=== PATIENT | female | born 1960 | race Caucasian/White ===

== ENCOUNTER → 2016-07-31 | Outpatient (CLI) | payer OTHER ==
[~2016-07-31] MED LIST: CALCCHW23 PO; LACTCAP7 PO; OMEGCAP19 PO
[2016-07-31 10:31] LABS: AUTOMATED NEUTROPHIL # 1.7 TH/MM3 (1.8-7.7); BASOPHIL % 0.7 % (0.0-2.0); EOSINOPHIL # 0.1 TH/MM3 (0-0.4); EOSINOPHIL % 2.6 % (0.0-4.0); HEMO FLAGS DIFF FINAL; LYMPHOCYTE # 1.6 TH/MM3 (1.0-4.8); MEAN CELL VOLUME 91.6 FL (80.0-100.0); MEAN CORPUSCULAR HEMOGLOBIN 31.1 PG (27.0-34.0); MEAN CORPUSCULAR HGB CONC 33.9 % (32.0-36.0); MONO % 5.9 % (0.0-8.0); NEUT % 47.8 % (16.0-70.0); PLATELET COUNT 233 TH/MM3 (150-450); RED BLOOD COUNT 4.37 MIL/MM3 (4.00-5.30); RED CELL DISTRIBUTION WIDTH 12.5 % (11.6-17.2); WHITE BLOOD COUNT 3.6 TH/MM3 (4.0-11.0)
[2016-07-31 10:48] LABS: WESTERGREN SEDIMENTATION RATE 7 mm/hr (0-30)
[2016-07-31 11:03] LABS: ALKALINE PHOSPHATASE 78 U/L (45-117); ALT (GPT) 22 U/L (10-53); ANION GAP 7 MEQ/L (5-15); AST (GOT) 21 U/L (15-37); BICARBONATE 27.7 MEQ/L (21.0-32.0); BLOOD UREA NITROGEN 16 MG/DL (7-18); CHLORIDE 108 MEQ/L (98-107); FREE T4 0.82 NG/DL (0.76-1.46); GLOMERULAR FILTRATION RATE 65 ML/MIN (>89); GLUCOSE,FASTING 93 MG/DL (74-99); HDL CHOLESTEROL 64.8 MG/DL (40.0-60.0); LDL CHOLESTEROL 173 MG/DL (0-99); POTASSIUM 4.6 MEQ/L (3.5-5.1); SODIUM (NA) 143 MEQ/L (136-145); TOTAL BILIRUBIN ADULT 0.7 MG/DL (0.2-1.0)
[2016-07-31 17:01] LABS: RAPID PLASMA REAGIN SCREEN NON-REACTIVE (NON-REACTVE)
== END ==
LOC: PLAB 08:00
PROVIDERS: ATTEND Family Medicine
DX: Z00.00 Encounter for general adult medical examination without abnormal findings (principal); R41.3 Other amnesia
CPT/HCPCS: 80053; 80061; 84439; 84443; 85025; 85652; 86592

== ENCOUNTER → 2016-08-16 | Outpatient (CLI) | payer OTHER ==
[2016-08-17 12:21] LABS: CRYPTOCOCCUS ANTIGEN Negative (Negative)
[2016-08-19 23:55] LABS: LYME DISEASE 18KD IGG BAND NON-REACTIVE (()); LYME DISEASE 23 IGG BAND NON-REACTIVE (()); LYME DISEASE 23KD IGM BAND REACTIVE (()); LYME DISEASE 28KD IGG BAND NON-REACTIVE (()); LYME DISEASE 30KD IGG BAND NON-REACTIVE (()); LYME DISEASE 39 KD IGG BAND NON-REACTIVE (()); LYME DISEASE 39KD IGM BAND NON-REACTIVE (()); LYME DISEASE 41KD IGG BAND NON-REACTIVE (()); LYME DISEASE 41KD IGM BAND REACTIVE (()); LYME DISEASE 45KD IGG BAND NON-REACTIVE (()); LYME DISEASE 58KD IGG BAND NON-REACTIVE (()); LYME DISEASE 66KD IGG BAND NON-REACTIVE (()); LYME DISEASE 93KD IGG BAND NON-REACTIVE (()); LYME DISEASE IGM WB POSITIVE (())
== END ==
LOC: PLAB 12:18
PROVIDERS: ATTEND Specialist
DX: A69.20 Lyme disease, unspecified (principal); E53.8 Deficiency of other specified B group vitamins; G61.9 Inflammatory polyneuropathy, unspecified; M31.6 Other giant cell arteritis
CPT/HCPCS: 82607; 86038; 86403; 86617

== ENCOUNTER → 2016-09-18 | Outpatient (CLI) | payer OTHER ==
[2016-09-18 09:32] LABS: APTT (PATIENT) 25.2 SEC (24.3-30.1); PROTHROMBIN TIME - PATIENT 10.5 SEC (9.8-11.6)
[2016-09-18 10:10] LABS: AUTOMATED NEUTROPHIL # 3.3 TH/MM3 (1.8-7.7); BASOPHIL % 0.5 % (0.0-2.0); EOSINOPHIL # 0.1 TH/MM3 (0-0.4); EOSINOPHIL % 1.2 % (0.0-4.0); HEMATOCRIT 35.6 % (35.0-46.0); HEMO FLAGS DIFF FINAL; LYMPH % 30.9 % (9.0-44.0); LYMPHOCYTE # 1.6 TH/MM3 (1.0-4.8); MEAN CELL VOLUME 90.6 FL (80.0-100.0); MEAN CORPUSCULAR HEMOGLOBIN 31.9 PG (27.0-34.0); MEAN CORPUSCULAR HGB CONC 35.2 % (32.0-36.0); MONO % 5.4 % (0.0-8.0); PLATELET COUNT 220 TH/MM3 (150-450); RED BLOOD COUNT 3.93 MIL/MM3 (4.00-5.30); WHITE BLOOD COUNT 5.3 TH/MM3 (4.0-11.0)
[2016-09-18 10:26] LABS: TOTAL PROTEIN SPE 7.4 GM/DL (6.0-7.6)
[2016-09-19 09:21] LABS: ALBUMIN SPE 5.06 GM/DL (3.50-5.00); ALPHA 1 GLOBULIN 0.2 GM/DL (0.11-0.29); ALPHA 2 GLOBULIN 0.77 GM/DL (0.22-1.00); BETA GLOBULINS (SPE) 0.77 GM/DL (0.53-1.03)
[2016-09-20 03:51] LABS: THROMBIN TIME FOR LA ND sec (13-19)
[2016-09-20 15:52] LABS: HU (NEURONAL NUCLEAR) WESTBLOT ND (NEGATIVE); NEURONAL NUCLEAR(Ri) AB SCREEN NEGATIVE (NEGATIVE); PURKINJE CELL (YO) AB NEGATIVE (NEGATIVE); PURKINJE CELL(YO)IGG AB TITER ND titer (<1:40); YO WESTBLOT ND (NEGATIVE)
[2016-09-20 23:53] LABS: THYROGLOB ABS LESS THAN 1 IU/mL (< OR = 1)
[2016-09-21 17:52] LABS: THYROGLOBULN 34.1 ng/mL (())
[2016-09-21 23:52] LABS: LYME DISEASE 18KD IGG BAND NON-REACTIVE (()); LYME DISEASE 23 IGG BAND NON-REACTIVE (()); LYME DISEASE 23KD IGM BAND REACTIVE (()); LYME DISEASE 28KD IGG BAND NON-REACTIVE (()); LYME DISEASE 30KD IGG BAND NON-REACTIVE (()); LYME DISEASE 39 KD IGG BAND NON-REACTIVE (()); LYME DISEASE 39KD IGM BAND NON-REACTIVE (()); LYME DISEASE 41KD IGG BAND NON-REACTIVE (()); LYME DISEASE 41KD IGM BAND NON-REACTIVE (()); LYME DISEASE 45KD IGG BAND NON-REACTIVE (()); LYME DISEASE 58KD IGG BAND NON-REACTIVE (()); LYME DISEASE 66KD IGG BAND NON-REACTIVE (()); LYME DISEASE 93KD IGG BAND NON-REACTIVE (()); LYME DISEASE IGM WB NEGATIVE (())
== END ==
LOC: PLAB 08:23
PROVIDERS: ATTEND Specialist
DX: R94.6 Abnormal results of thyroid function studies (principal); A69.20 Lyme disease, unspecified; R78.9 Finding of unspecified substance, not normally found in blood; D68.2 Hereditary deficiency of other clotting factors; E03.9 Hypothyroidism, unspecified; G61.9 Inflammatory polyneuropathy, unspecified; G13.0 Paraneoplastic neuromyopathy and neuropathy; R76.0 Raised antibody titer
CPT/HCPCS: 84165; 84432; 85025; 85610; 85613; 85730; 86147; 86255; 86376; 86617; 86800; 87801

== ENCOUNTER 2016-09-20 06:41 | Day surgery (SDC) | payer OTHER ==
[~2016-09-20] VITALS: Ht 167.6 cm; Wt 57.5 kg
[2016-09-20 06:49] VITALS: BP 154/101; PULSE 65; RESP 20; TEMP 98; O2SAT 97
[2016-09-20] MEDS ORDERED: SODIUM BICARBONATE 8.4% INJ 50 ML ONE (08:05)
[2016-09-20 08:20] VITALS: BP 156/85; PULSE 65; RESP 16; TEMP 98.1; O2SAT 98
--- NOTE | 2016-09-20 08:27 | PD.RAD ---
Post Procedure Progress Note Pre Procedure Diagnosis: (1) Memory loss Post Procedure Diagnosis: (1) Memory loss Procedure Date: Sep 20, 2016 Supervising Radiologist: Juan Carlos Vasquez Anesthesia: Local Plan of Activity Patient to Unit: [facility] Patient Condition: Good Additional Comments: LP completed without difficulty. 16cc of clear csf obtained. Samples sent to the lab. See PACS Report for procedural detail/treatment Juan Carlos Vasquez MD Sep 20, 2016 08:27
--- NOTE | 2016-09-20 08:55 | RADRPT ---
EXAM DATE/TIME: 09/20/2016 07:44 [place] COMPARISON: No previous studies available for comparison. INDICATIONS : Patient with a history of memory loss MEDICAL HISTORY : Basil cell carcinoma Headaches SURGICAL HISTORY : Breast augmentation ENCOUNTER: Initial ACUITY: > 1 year PAIN SCORE: 0/10 LUMBAR PUNCTURE TIME: 0812 hours FLUORO TIME: 0.9 minutes ACCESS LEVEL: L4-5 FLUID: 16 cc of clear CSF was collected and sent to the laboratory for analysis. PROCEDURE : 1. Fluoroscopic guided lumbar puncture. The risks, benefits and alternatives to the procedure were explained and verbal and written consent w as obtained. The site was prepped in sterile fashion. Full sterile technique was used, including ca p, mask, sterile gloves and gown and a large sterile sheet. Hand hygiene and 2% chlorhexidine and/or betadine/alcohol prep was utilized per protocol for cutaneous antisepsis. The skin and subcutaneous tissues were infiltrated with local anesthetic solution. With fluoroscopic guidance the lumbar thecal sac was punctured at the L4/L5 level. 16 cc of clear CS F was collected and sent to the laboratory for analysis. The patient tolerated the procedure well and there were no complications. CONCLUSION: Uncomplicated fluoroscopically guided lumbar puncture. Juan Carlos Vasquez MD on September 20, 2016 at 8:53 Board Certified Radiologist. This report was verified electronically.
[2016-09-20 09:30] LABS: GROSS BLOOD TUBE #1 0 (0); SUPERNATE COLOR TUBE #1 CLEAR (CLEAR); VOLUME TUBE # 1 3.9 ML; WBC TUBE #1 2 /MM3 (0-10)
[2016-09-20 09:31] LABS: CSF LYMPHOCYTES 96 %; CSF MONOCYTES 4 %; CSF NEUTROPHILS 0 %; GROSS BLOOD TUBE #2 0 (0); GROSS BLOOD TUBE #3 0 (0); GROSS BLOOD TUBE #4 0 (0); SUPERNATE COLOR TUBE #2 CLEAR (CLEAR); SUPERNATE COLOR TUBE #3 CLEAR (CLEAR); SUPERNATE COLOR TUBE #4 CLEAR (CLEAR); VOLUME TUBE # 2 3.6 ML; VOLUME TUBE # 3 4.6 ML; VOLUME TUBE # 4 4.2 ML
[2016-09-20 09:32] LABS: CSF LYMPHOCYTES 0 %; CSF NEUTROPHILS 0 %; GROSS BLOOD TUBE #4 0 (0); SUPERNATE COLOR TUBE #4 CLEAR (CLEAR); VOLUME TUBE # 4 4.2 ML; WBC TUBE #4 0 /MM3 (0-10)
[2016-09-20 10:00] VITALS: BP 148/76; PULSE 68; RESP 16; O2SAT 96
[2016-09-21 15:43] LABS: LYME IGG IMMUNOBLOT CSF None Detected bands (None Detected); LYME IGM IMMUNOBLOT CSF None Detected bands (None Detected)
[2016-09-21 16:40] LABS: ALBUMIN SERUM 4520 mg/dL (3200 - 4800); IGG CSF 2.1 mg/dL (<=8.1); IGG SERUM 638 mg/dL (767 - 1590); IGG/ALBUMIN CSF 0.07 (<=0.21); IGG/ALBUMIN SERUM 0.14 (<=0.40); OLIGOCLONAL BANDING CSF 0 bands (()); OLIGOCLONAL BANDING INTERPRET 0 bands (<4); OLIGOCLONAL BANDING SERUM 0 bands (()); SYNTHESIS RATE CSF 0.07 mg/24 h (<=12)
[2016-09-22 19:52] LABS: VDRL CSF NON-REACTIVE (())
[2016-09-22 23:51] LABS: B. BURGDORFERI DNA PCR CSF NOT DETECTED (())
[2016-09-23 08:30] LABS: CSF CRYPTOCOCCUS AG CONF ND (NOT DETECTD)
== END 2016-09-20 10:05 | disposition home or self-care (01) ==
LOC: HROP 06:41 → HRIP 06:42 → HROP 10:05
PROVIDERS: ATTEND Specialist
DX: R41.3 Other amnesia (principal)
CPT/HCPCS: 62270; 77003; 82040; 82042; 82784; 82945; 83873; 83916; 84157; 86403; 86592; 86618; 87015; 87070; 87102; 87116; 87205; 87206; 87801; 89051

== ENCOUNTER → 2017-11-30 | Outpatient (CLI) | payer OTHER ==
[2017-11-30 13:53] LABS: AUTOMATED NEUTROPHIL # 2.3 TH/MM3 (1.8-7.7); BASOPHIL % 0.5 % (0.0-2.0); EOSINOPHIL # 0.1 TH/MM3 (0-0.4); HEMATOCRIT 39.6 % (35.0-46.0); HEMOGLOBIN 13.4 GM/DL (11.6-15.3); LYMPHOCYTE # 2.1 TH/MM3 (1.0-4.8); MEAN CELL VOLUME 89.8 FL (80.0-100.0); MEAN CORPUSCULAR HEMOGLOBIN 30.3 PG (27.0-34.0); MEAN CORPUSCULAR HGB CONC 33.8 % (32.0-36.0); MONOCYTE # 0.3 TH/MM3 (0-0.9); NEUT % 47.5 % (16.0-70.0); PLATELET COUNT 302 TH/MM3 (150-450); RED BLOOD COUNT 4.41 MIL/MM3 (4.00-5.30); RED CELL DISTRIBUTION WIDTH 13.1 % (11.6-17.2); WHITE BLOOD COUNT 4.8 TH/MM3 (4.0-11.0)
[2017-11-30 14:18] LABS: ALBUMIN 4.1 GM/DL (3.4-5.0); AST (GOT) 25 U/L (15-37); BICARBONATE 29.9 MEQ/L (21.0-32.0); BLOOD UREA NITROGEN 8 MG/DL (7-18); CALCIUM 9.6 MG/DL (8.5-10.1); CHLORIDE 105 MEQ/L (98-107); CREATININE 0.87 MG/DL (0.50-1.00); GLOMERULAR FILTRATION RATE 68 ML/MIN (>89); GLUCOSE,FASTING 87 MG/DL (74-99); SODIUM (NA) 141 MEQ/L (136-145)
[2017-11-30 14:19] LABS: ALT (GPT) 33 U/L (10-53); CHOLESTEROL 262 MG/DL (120-200)
[2017-11-30 14:28] LABS: ALKALINE PHOSPHATASE 141 U/L (45-117); CHOLESTEROL/ HDL RATIO 5.01 RATIO; HDL CHOLESTEROL 52.2 MG/DL (40.0-60.0); LDL CHOLESTEROL 162 MG/DL (0-99); TOTAL BILIRUBIN ADULT 0.5 MG/DL (0.2-1.0); TOTAL PROTEIN 7.5 GM/DL (6.4-8.2); TRIGLYCERIDES 238 MG/DL (42-150)
== END ==
LOC: PLAB 11:28
PROVIDERS: ATTEND Family Medicine
DX: I10 Essential (primary) hypertension (principal); R41.3 Other amnesia
CPT/HCPCS: 36415; 80053; 80061; 84443; 85025

== ENCOUNTER 2018-05-27 22:15 | Observation (INO) ==
--- NOTE | 2018-05-27 22:52 | ED ---
HPI General Chief complaint: Seizure Stated complaint: Seizures Time Seen by Provider: 05/27/18 22:19 Source: family Mode of arrival: EMS Limitations: altered mental status (the patient is unable to provide her history due to dementia. Her is providing her history.) History of Present Illness HPI narrative: The patient is aa 57 year old female who presents to the [facility] emergency department with a history of seizure activity witnessed by her prior to arrival. The patient was reportedly sitting and watching television when her walked out of the room. He heard a grown/loud sound from the other room including a side and then walked into the room finding her with seizure activity. The patient fell onto the tile floor. The patient was frothing at the mouth. The patient had a generalized tonic-clonic seizure activity. The patient had a decreased level of consciousness for approximately 5 minutes. The patient then was noted by ambulance services to be in a postictal state. The patient has no prior history of seizure disorder. The patient does however have a history of early onset Alzheimer's diagnosed 2 years ago. The patient at baseline is not very communicative according to her . She is not able to state her name. He reports that he has a caregiver that comes to the house 10 hours a day. He reports that she has become aggressive with caregivers and 2 weeks ago was started on CBD oil which seems to be helping to relax her. This is the only new medication. He reports that she did appear well earlier in the day. He reports that the only thing that was different recently was on Sunday he found her in a cabinet attempting to take a handful of ibuprofen. He reports that she would not be able to communicate to him exactly why she wanted to ibuprofen, however he did assist her with taking 3 tablets in case she had some pain. She has not had any known fevers, nausea, vomiting, or diarrhea. She has not had any change in her urination. She has not had any focal weakness noted. The patient's incidentally also reports that the patient did sleep longer than usual on this past Sunday. Related Data Home Medications Medication Instructions Recorded Confirmed Cbd Oil See Label Instructions .ROUTE 05/27/18 .COMPLEX donepezil [Aricept] 5 mg PO HS 05/27/18 05/27/18 Allergies Allergy/AdvReac Type Severity Reaction Status Date / Time No Known Allergies Allergy Uncoded 05/14/12 10:27 Review of Systems ROS Unobtainable ROS Unobtainable: unobtainable due to mental status PMFSH Medical History Medical History Early onset Alzheimer's dementia (Acute) Surgical History Surgical History H/O tubal ligation (Acute) Family History Family History Sister Epilepsy Mother Alzheimer's dementia Father Cerebral aneurysm Social History Social History Substance History: No History of Abuse Smoking Status: Former smoker Tobacco Type: Cigarettes Smoking End Date: Quit smoking 2 years ago. How Often Do You Have a Drink Containing Alcohol: Never Recent Travel in [place] within the Last 8 Weeks: No Recent Out of Country Travel within the Last 8 Weeks: No Immunization History Tetanus Immunization: >5 Years Exam Const General: cooperative, no acute distress and well developed Nutritional Appearance: well nourished Orientation: alert and awake Limitations: other limitations (When asked orientation questioning the patient does not answer.) HENWY Head: normocephalic and atraumatic Nose: no nasal discharge and no epistaxis Throat: other (The patient refuses to open her mouth for examination in her oropharynx.) Eyes Sclera: normal sclerae Pupils: PERRL Neck Neck: no meningeal signs, trachea midline and no JVD Resp Effort & Inspection: no use of accessory muscles Auscultation: clear to auscultation bilaterally Cardio Rate: regular rate Rhythm: regular rhythm Heart Sounds: no gallops, no murmurs and no rubs GI Inspection: non-distended Palpation: soft, no hepatosplenomegaly, no guarding, not rigid and nontender Auscultation: normal bowel sounds Back/Spine/Pelvis Back: no CVA tenderness Skin General: dry skin (warm) Neuro General: alert, awake and other (She is uncooperative with formal neurologic testing although she has no evidence of facial asymmetry. She has intact sensation over her dermatomes and spontaneously moves all extremities with 5/5 strength.) Speech: speech normal Motor: no movement abnormalities noted Extrem General: normal to inspection (2+ pulses in all 4 extremities.), no calf tenderness, no clubbing, no cyanosis and no edema Psych Mood: congruent mood Affect: normal affect Judgment: limited Course Initial Documented Vital Signs Pulse Rate 79 05/27/18 22:23 Respiratory Rate 15 05/27/18 22:23 Blood Pressure 143/77 H 05/27/18 22:23 Pulse Oximetry 95 05/27/18 22:23 Last Documented Vital Signs Temperature 97.7 F 05/28/18 03:00 Pulse Rate 69 05/28/18 03:10 Respiratory Rate 20 05/28/18 03:00 Blood Pressure 125/63 05/28/18 03:00 Pulse Oximetry 94 L 05/28/18 03:00 Medical Decision Making MDM Narrative Medical decision making narrative: During the course of the patient's emergency department visit, the patient's history, examination, and differential diagnosis were reviewed with the patient's family. The patient was placed on a senior licensing manager with oximetry and frequent blood pressure monitoring. The patient had IV access obtained and blood work sent for analysis. A diagnostic evaluation was started regarding new onset seizure activity. The patient was initially provided normal saline IV fluids. The patient's diagnostic studies are remarkable for an essentially normal CBC, PT PTT within normal limits, chemistry is remarkable for a creatinine of 1.07 which is slightly increased compared to prior levels and should be improved with IV fluid hydration, glucose 107, lactic acid 1.5, AST 38, alk phos 131, CPK 546, MB percent 0.9, troponin I less than 0.02, lipase within normal limits. A chest x-ray showed a right middle lobe infiltrate. This could be related to aspiration. Blood cultures x2 were added to the patient's evaluation. The patient was started on broad-spectrum antibiotic coverage to include coverage for aspiration. The patient became agitated and CT for, therefore for sedation the patient was provided Ativan 1 mg IV. The patient's CT scan of the brain showed no acute abnormality. The patient's case was discussed with Dr. Chan, the patient's neurologist who did request that the patient be started on Keppra 500 mg p.o. twice daily. The patient's case including history, pertinent physical examination findings, and laboratory studies were discussed with Dr. Beckman. It was agreed that the patient would be admitted to the hospitalist service. The patient's results were discussed with the patient's family, including the plan of care. I explained that further testing and/ or monitoring is indicated based on the patient's history, examination, and/ or laboratory findings. Therefore, I recommended admission for additional evaluation. The patient's family expressed understanding and was agreeable with this plan. The patient was admitted to the hospital in guarded condition and sent to a bed under the care of the [facility] service. Medical Screen Exam Complete: Yes Emergency Medical Condition: Yes Differential Diagnosis Differential Diagnosis: Intracranial mass, versus intracranial hemorrhage, versus electrolyte derangements, new onset seizure disorder Medical Records Medical records reviewed: Yes I reviewed the patient's medical records. Lab Data Lab results reviewed: Yes I reviewed the patient's lab results. Result diagrams: 05/27/18 22:45 05/27/18 22:45 Lab Results 05/27/18 05/27/18 05/27/18 Range/Units 22:45 22:45 22:45 WBC 7.6 (4.0-11.0) th/mm3 RBC 4.44 (4.00-5.30) mil/mm3 Hgb 13.6 (11.6-15.3) gm/dL Hct 39.9 (35.0-46.0) % MCV 89.9 (80.0-100.0) fL MCH 30.7 (27.0-34.0) pg MCHC 34.1 (32.0-36.0) % RDW 13.0 (11.6-17.2) % Plt Count 245 (150-450) th/mm3 MPV 8.4 (7.0-11.0) fL Neut % (Auto) 56.1 (16.0-70.0) % Lymph % (Auto) 33.4 (9.0-44.0) % [place] % (Auto) 8.4 H (0.0-8.0) % Eos % (Auto) 1.7 (0.0-4.0) % Baso % (Auto) 0.4 (0.0-2.0) % Neut # (Auto) 4.3 (1.8-7.7) th/mm3 Lymph # (Auto) 2.5 (1.0-4.8) th/mm3 [place] # (Auto) 0.6 (0.0-0.9) th/mm3 Eos # (Auto) 0.1 (0.0-0.4) th/mm3 Baso # (Auto) 0.0 (0.0-0.2) th/mm3 WBC Differential . Differential Comment Auto diff final PT 10.3 (9.8-11.6) sec INR 1.0 Ratio APTT 26.8 (23.4-31.7) sec Sodium 136 (136-145) meq/L Potassium 4.0 (3.5-5.1) meq/L Chloride 100 (98-107) meq/L Carbon Dioxide 27.2 (21.0-32.0) meq/L Anion Gap 9 (5-15) meq/L BUN 14 (7-18) mg/dL Creatinine 1.07 H (0.50-1.00) mg/dL Estimated GFR 53 L (>89) mL/min Random Glucose 107 H (74-106) mg/dL Lactic Acid (0.4-2.0) mmol/L Calcium 9.0 (8.5-10.1) mg/dL Magnesium 2.3 (1.5-2.5) mg/dL Total Bilirubin 0.9 (0.2-1.0) mg/dL AST 38 H (15-37) U/L ALT 36 (10-53) U/L Alkaline Phosphatase 131 H (45-117) U/L Total Creatine Kinase 546 H (26-192) U/L CK-MB (CK-2) 4.8 H (0.5-3.6) ng/mL CK-MB (CK-2) % 0.9 (0.0-4.0) % Troponin I Less than 0.02 L (0.02-0.05) ng/mL Total Protein 7.6 (6.4-8.2) g/dL Albumin 3.9 (3.4-5.0) g/dL Lipase 150 (73-393) U/L 05/28/18 05/28/18 Range/Units 00:00 04:59 WBC (4.0-11.0) th/mm3 RBC (4.00-5.30) mil/mm3 Hgb (11.6-15.3) gm/dL Hct (35.0-46.0) % MCV (80.0-100.0) fL MCH (27.0-34.0) pg MCHC (32.0-36.0) % RDW (11.6-17.2) % Plt Count (150-450) th/mm3 MPV (7.0-11.0) fL Neut % (Auto) (16.0-70.0) % Lymph % (Auto) (9.0-44.0) % [place] % (Auto) (0.0-8.0) % Eos % (Auto) (0.0-4.0) % Baso % (Auto) (0.0-2.0) % Neut # (Auto) (1.8-7.7) th/mm3 Lymph # (Auto) (1.0-4.8) th/mm3 [place] # (Auto) (0.0-0.9) th/mm3 Eos # (Auto) (0.0-0.4) th/mm3 Baso # (Auto) (0.0-0.2) th/mm3 WBC Differential Differential Comment PT (9.8-11.6) sec INR Ratio APTT (23.4-31.7) sec Sodium (136-145) meq/L Potassium (3.5-5.1) meq/L Chloride (98-107) meq/L Carbon Dioxide (21.0-32.0) meq/L Anion Gap (5-15) meq/L BUN (7-18) mg/dL Creatinine (0.50-1.00) mg/dL Estimated GFR (>89) mL/min Random Glucose (74-106) mg/dL Lactic Acid 1.5 (0.4-2.0) mmol/L Calcium (8.5-10.1) mg/dL Magnesium (1.5-2.5) mg/dL Total Bilirubin (0.2-1.0) mg/dL AST (15-37) U/L ALT (10-53) U/L Alkaline Phosphatase (45-117) U/L Total Creatine Kinase 658 H (26-192) U/L CK-MB (CK-2) 10.4 H (0.5-3.6) ng/mL CK-MB (CK-2) % 1.6 (0.0-4.0) % Troponin I 0.05 (0.02-0.05) ng/mL Total Protein (6.4-8.2) g/dL Albumin (3.4-5.0) g/dL Lipase (73-393) U/L Imaging Data Radiologist's impression: Chest X-Ray 05/27/18 22:34 CONCLUSION: Middle lobe infiltrate Head CT 05/28/18 00:00 CONCLUSION: Negative CT Head non contrast. ECG Data Attestation: I personally reviewed and interpreted this ECG as follows: Interpretation: The patient had a EKG done on arrival that shows a sinus rhythm heart rate of 76, QRS duration is 94 ms, QTC [address] segment elevation. T waves are inverted in V1. Discharge Plan Discharge Disposition Patient Disposition: 30 Still Patient Discharge Details Diagnosis: New onset seizure, Right middle lobe pulmonary infiltrate Physicians Team ED Provider: Toma Brown Primary Care Provider: Blanca Hernández Attending Provider: Nissa Monreal Other Providers: Doug Ordaz Status ED Status: Left Department Discharge Information Discharge Date/Time: 05/28/18 04:36
--- NOTE | 2018-05-27 22:55 | XR ---
EXAM DATE: 05/27/2018 10:50 PM EST AGE/SEX: 57 years / Female INDICATIONS: Congestion CLINICAL DATA: This is the patient's initial encounter. Patient reports that signs and symptoms have been present for 1 day and indicates a pain score of Nonresponsive. MEDICAL/SURGICAL HISTORY: Non-responsive. Non-responsive. COMPARISON: No prior exams available for comparison. FINDINGS: There is slight middle lobe parenchymal opacity which may be early infiltrate. No evidence of effusio n. Cardiomediastinal contours are satisfactory. Thoracic skeleton is grossly intact. CONCLUSION: Middle lobe infiltrate Electronically signed by: Max Suero MD 05/27/2018 10:54 PM EST
[2018-05-27 23:01] LABS: Baso % (Auto) 0.4 % (0.0-2.0); Eos # (Auto) 0.1 th/mm3 (0.0-0.4); Eos % (Auto) 1.7 % (0.0-4.0); Hematocrit 39.9 % (35.0-46.0); Hemoglobin 13.6 gm/dL (11.6-15.3); Lymph # (Auto) 2.5 th/mm3 (1.0-4.8); Lymph % (Auto) 33.4 % (9.0-44.0); Mean Corpuscular HGB Conc 34.1 % (32.0-36.0); Mean Corpuscular Hemoglobin 30.7 pg (27.0-34.0); Mean Corpuscular Volume 89.9 fL (80.0-100.0); Mean Platelet Volume 8.4 fL (7.0-11.0); Mono # (Auto) 0.6 th/mm3 (0.0-0.9); Mono % (Auto) 8.4 % (0.0-8.0); Neut # (Auto) 4.3 th/mm3 (1.8-7.7); Neut % (Auto) 56.1 % (16.0-70.0); Platelet Count 245 th/mm3 (150-450); Red Blood Count 4.44 mil/mm3 (4.00-5.30); White Blood Count 7.6 th/mm3 (4.0-11.0)
[2018-05-27 23:11] LABS: Activated Partial Thrombo Time 26.8 sec (23.4-31.7); Prothrombin Time 10.3 sec (9.8-11.6)
[2018-05-27 23:19] LABS: Alanine Aminotransferase 36 U/L (10-53)
[2018-05-27 23:23] LABS: Alkaline Phosphatase 131 U/L (45-117); Creatine Kinase 546 U/L (26-192); Total Protein 7.6 g/dL (6.4-8.2)
[2018-05-27 23:25] LABS: Albumin 3.9 g/dL (3.4-5.0); Anion Gap 9 meq/L (5-15); Aspartate Aminotransferase 38 U/L (15-37); Blood Urea Nitrogen 14 mg/dL (7-18); Carbon Dioxide 27.2 meq/L (21.0-32.0); Chloride 100 meq/L (98-107); Glomerular Filtration Rate 53 mL/min (>89); Glucose,Random 107 mg/dL (74-106); Lipase 150 U/L (73-393); Magnesium 2.3 mg/dL (1.5-2.5); Sodium 136 meq/L (136-145)
[2018-05-27 23:35] LABS: CKMB Percent 0.9 % (0.0-4.0); Creatine Kinase MB 4.8 ng/mL (0.5-3.6)
[2018-05-27] MEDS ORDERED: Azithromycin Inj 500 MG in Sodium Chlor 0.9% Inj 250 ML IV.SIG ONE (23:36)
[2018-05-27] MEDS ORDERED: Sod Chloride 0.9% Inj 1,000 ML IV.SIG ONE (23:37)
--- NOTE | 2018-05-28 00:53 | CT ---
EXAM DATE: 05/28/2018 12:47 AM EST AGE/SEX: 57 years / Female INDICATIONS: Seizure. CLINICAL DATA: This is the patient's initial encounter. Patient reports that signs and symptoms have been present for 1 day and indicates a pain score of 0/10. MEDICAL/SURGICAL HISTORY: Dementia. Alzheimer's disease. Tubal ligation. RADIATION DOSE: 34.07 CTDI (mGy) COMPARISON: POI, MR BRAIN W AND W/O CONTRAST, 08/03/2016. . TECHNIQUE: CT of the head without contrast. Using automated exposure control and adjustment of the mA and/or kV according to patient size, radiation dose was kept as low as reasonably achievable to ob tain optimal diagnostic quality images. DICOM format image data is available electronically for revi ew and comparison. FINDINGS: Cerebrum: The ventricles are normal for age. No evidence of midline shift, mass lesion, hemorrhage or acute infarction. No extraaxial fluid collections are seen. Posterior Fossa: The cerebellum and brainstem are intact. The 4th ventricle is midline. The cerebe llopontine angle is unremarkable. Extracranial: The visualized portion of the orbits is intact. Skull: The calvaria is intact. No evidence of skull fracture. CONCLUSION: Negative CT Head non contrast. Electronically signed by: Max Suero MD 05/28/2018 12:52 AM EST
[2018-05-28] MEDS ORDERED: Sod Chloride 0.9% Inj 1,000 ML IV.CONT SCH (01:30)
[2018-05-28] MEDS ORDERED: Bisacodyl 10 MG Supp RECTAL PRN (01:39)
[2018-05-28] MEDS: Ampicillin/Sulbactam Inj 3 GM in Sodium Chloride 0.9% Inj 100 ML IV.SIG SCH ×4 (02:52→20:33)
--- NOTE | 2018-05-28 03:34 | P.HPIM ---
History of Present Illness Primary Care Physician: Blanca Hernández MD History of Present Illness: 57-year-old female with history of early onset Alzheimer's dementia diagnosed 2 years ago who presents to the emergency department with seizure activity witnessed by her at home prior to arrival. Patient had been watching television, with reporting a loud sound, groaning, with patient having fallen to the floor, with generalized tonic-clonic seizure activity, gurgling, frothing at the mouth. Patient reported to have decreased level of consciousness for 5 minutes, reportedly in postictal state as per cyber defense incident responder. Patient poorly communicative at baseline, however reportedly able to tell ER staff her name and birthdate. She subsequently received Ativan prior to CT scan and is now sleeping soundly. notes no changes in medications recently. Patient has been verbally aggressive with home care, and was started on CBD oil 2 weeks ago which appears to have helped calm her down. Patient was noted to be sleeping during the day on Sunday, apparently found trying to take a handful of ibuprofen on Sunday, however was only administered 3 tablets at that time. No significant changes over the past few days. Review of Systems All other systems reviewed negative except as stated in HPI PMFSH - History History Provided By: Product Marketing Director / EMT - Medical History Medical History: Medical History (Last Reviewed 05/28/18 @ 03:25 by Aashish Beckman MD) Early onset Alzheimer's dementia - Surgical History Surgical History: Surgical History (Last Reviewed 05/27/18 @ 22:48 by Toma Brown MD) H/O tubal ligation - Family History Family History: Family History (Last Updated 05/28/18 @ 03:32 by Aashish Beckman MD) Sister Epilepsy Mother Alzheimer's dementia Father Cerebral aneurysm - Social History I have reviewed the patient's Social History: Yes - Tobacco History Smoking Status: Former smoker Tobacco Type: Cigarettes Smoking End Date: Quit smoking 2 years ago. - Alcohol History How Often Do You Have a Drink Containing Alcohol: Never - Substance Use History Substance History: No History of Abuse - Travel History Recent Travel in the [facility] Within the Last 8 Weeks: No Recent Travel Out of the Country Within the Last 8 Weeks: No - Immunization History Tetanus Immunization: >5 Years Medications and Allergies Active Medications: Active Medications Al Hydroxide/Mg Hydroxide (Milk Of Magnesia Liq) 30 ml PO Q12H PRN PRN Reason: Mild Constipation Bisacodyl (Dulcolax Supp) 10 mg RECTAL DAILY PRN PRN Reason: SEVERE CONSITIPATION Sodium Chloride (Ns Inj) 1,000 mls @ 75 mls/hr IV.CONT .[id number] [facility] Last Admin: 05/28/18 01:40 Dose: 75 mls/hr Ampicillin Sodium/Sulbactam (Sodium 3 gm/ Sodium Chloride) 100 mls @ 200 mls/ hr IV.SIG Q6H [facility] Last Admin: 05/28/18 02:52 Dose: 200 mls/hr Lactulose (Lactulose Liq) 30 ml PO DAILY PRN PRN Reason: SEVERE CONSITIPATION Levetiracetam (Keppra) 500 mg PO BID [facility] Lorazepam (Ativan Inj) 0.5 mg IV.PUSH Q2H PRN PRN Reason: AGITATION Sennosides (Senokot) 17.2 mg PO Q12H PRN PRN Reason: Moderate Constipation Sodium Chloride (Ns Flush) 2 ml IV.FLUSH PRN PRN PRN Reason: FLUSH AFTER USING IV ACCESS Sodium Chloride (Ns Flush) 2 ml IV.FLUSH BID [facility] Allergies Allergy/AdvReac Type Severity Reaction Status Date / Time No Known Allergies Allergy Uncoded 05/14/12 10:27 Home Medications Medication Instructions Recorded Confirmed Type Cbd Oil See Label Instructions .ROUTE 05/27/18 History .COMPLEX donepezil [Aricept] 5 mg PO HS 05/27/18 05/27/18 History Exam Vital signs: Vital Signs 05/27/18 22:23 05/27/18 23:31 05/27/18 23:32 Pulse Rate 79 81 Respiratory Rate 15 Blood Pressure 143/77 H Pulse Oximetry 95 94 L 05/28/18 01:35 05/28/18 01:37 05/28/18 02:09 Pulse Rate 69 Respiratory Rate 15 Blood Pressure 126/61 Pulse Oximetry 98 97 97 Intake & Output 05/27/18 05/27/18 05/28/18 06:59 18:59 06:59 Intake Total 1100 / 1100 Balance 1100 / 1100 Weight 70.307 kg Intake: IV 1100 / 1100 NS Inj 1,000 ML @ Wide Open IV. 1000 / 1000 SIG BOLUS ONE Rx#:[id number] Rocephin Inj 1,000 MG In NS Inj 100 / 100 100 ML @ 200 mls/hr IV.SIG ONCE ONE Rx#:[id number] Narrative: GENERAL: Patient sleeping, minimally arousable to tactile stimulation. Appears comfortable. Recently received Ativan. SKIN: Warm and dry. HEAD: Atraumatic. Normocephalic. ENT: No nasal bleeding or discharge. Mucous membranes pink and moist. NECK: Trachea midline. No JVD. CARDIOVASCULAR: Regular rate and rhythm. RESPIRATORY: No accessory muscle use. Clear to auscultation. Breath sounds equal bilaterally. No crackles. No rhonchi. GASTROINTESTINAL: Abdomen soft, non-tender, nondistended. Hepatic and splenic margins not palpable. MUSCULOSKELETAL: Extremities without clubbing, cyanosis, or edema. No obvious deformities. NEUROLOGICAL: Sleeping. No obvious cranial nerve deficits. Exam limited by patient sleeping with recent Ativan. Results - Labs CBC & Chem 7: 05/27/18 22:45 05/27/18 22:45 Labs: Short CBC 05/27/18 Range/Units 22:45 WBC 7.6 (4.0-11.0) th/mm3 Hgb 13.6 (11.6-15.3) gm/dL Hct 39.9 (35.0-46.0) % Plt Count 245 (150-450) th/mm3 BMP 05/27/18 22:45 Sodium 136 Potassium 4.0 Chloride 100 Carbon Dioxide 27.2 BUN 14 Creatinine 1.07 H Calcium 9.0 Cardiac Enzymes 05/27/18 Range/Units 22:45 Total Creatine Kinase 546 H (26-192) U/L CK-MB (CK-2) 4.8 H (0.5-3.6) ng/mL Troponin I Less than 0.02 L (0.02-0.05) ng/mL Liver Function 05/27/18 Range/Units 22:45 Total Bilirubin 0.9 (0.2-1.0) mg/dL AST 38 H (15-37) U/L ALT 36 (10-53) U/L Alkaline Phosphatase 131 H (45-117) U/L Albumin 3.9 (3.4-5.0) g/dL - Imaging Impressions Chest X-Ray 05/27/18 22:34 CONCLUSION: Middle lobe infiltrate Head CT 05/28/18 00:00 CONCLUSION: Negative CT Head non contrast. Caprini VTE Risk Assessment Caprini VTE Risk Assessment: No/Low Risk (score <= 1) Caprini Risk Assessment Model: Point Value = 1 Point Value = 2 Point Value = 3 Point Value = 5 Age 41-60 Minor surgery BMI > 25 kg/m2 Swollen legs Varicose veins or History of unexplained or recurrent spontaneous Oral contraceptives or hormone replacement Sepsis (< 1 month) Serious lung disease, including pneumonia (< 1 month) Abnormal pulmonary function Acute myocardial infarction Congestive heart failure (< 1 month) History of inflammatory bowel disease Medical patient at bed rest Age 61-74 Arthroscopic surgery Major open surgery (> 45 min) Laparoscopic surgery (> 45 min) Malignancy Confined to bed (> 72 hours) Immobilizing plaster cast Central venous access Age >= 75 History of VTE Family history of VTE Factor V Leiden Prothrombin [id number] Lupus anticoagulant Anticardiolipin antibodies Elevated serum homocysteine Heparin-induced thrombocytopenia Other congenital or acquired thrombophilia Stroke (< 1 month) Elective arthroplasty Hip, pelvis, or leg fracture Acute spinal cord injury (< 1 month) Prophylaxis Regimen: Total Risk Factor Score Risk Level Prophylaxis Regimen 0-1 Low Early ambulation 2 Moderate Order ONE of the following: *Sequential Compression Device (SCD) *Heparin 5000 units SQ BID 3-4 Higher Order ONE of the following medications: *Heparin 5000 units SQ TID *Enoxaparin/Lovenox 40 mg SQ daily (WT < 150 kg, CrCl > 30 mL/min) *Enoxaparin/Lovenox 30 mg SQ daily (WT < 150 kg, CrCl > 10-29 mL/min) *Enoxaparin/Lovenox 30 mg SQ BID (WT < 150 kg, CrCl > 30 mL/min) AND/OR *Sequential Compression Device (SCD) 5 or more Highest Order ONE of the following medications: *Heparin 5000 units SQ TID (Preferred with Epidurals) *Enoxaparin/Lovenox 40 mg SQ daily (WT < 150 kg, CrCl > 30 mL/min) *Enoxaparin/Lovenox 30 mg SQ daily (WT < 150 kg, CrCl > 10-29 mL/min) *Enoxaparin/Lovenox 30 mg SQ BID (WT < 150 kg, CrCl > 30 mL/min) AND *Sequential Compression Device (SCD) Assessment and Plan - Plan //Suspected new-onset seizure -CT with no acute findings -CK 546 on admission. Will be trended. Could be related to patient's history of new onset Alzheimer's EEG, MRI ordered and pending. Start on Keppra 500 mg p.o. twice daily -Neuro checks, seizure precautions. -Troponin negative. T waves inverted in V1, nonspecific. Troponins and EKGs will be trended. -Ativan as needed for agitation, imaging. Neurology consulted. Follow-up neurology recommendations. Dr. Chan is her neurologist. //Aspiration pneumonia. //Suspected right middle lobe pneumonia -Right middle lobe infiltrate personally visualized on chest x-ray. Likely aspiration due to suspected seizure -Oximetry 92% on room air reportedly. Oxygen as needed. We will start on Unasyn to cover gram negatives, anaerobes, aspiration pneumonia. //History of early onset Alzheimer's dementia On donepezil at home. Will hold this medication until patient seen by neurology. Appreciate assistance. //CODE STATUS. This will need to be discussed with family on subsequent encounter. Defaulted to full code. Discussed Condition With: nurse, ED physician, at bedside. Discharge Planning: Patient in observation. If stable, cleared by neurology, and respiratory status stable, may be able to go home this afternoon.
[2018-05-28 05:52] LABS: Troponin I 0.05 ng/mL (0.02-0.05)
[2018-05-28 06:04] LABS: CKMB Percent 1.6 % (0.0-4.0); Creatine Kinase MB 10.4 ng/mL (0.5-3.6)
--- NOTE | 2018-05-28 08:08 | ECG ---
Date Performed: 05/27/2018 Time Performed: 22:36:09 PTAGE: 57 years EKG: Marked baseline artifact Sinus rhythm NORMAL ECG Would repeat EKG. NO PREVIOUS TRACING DOCTOR: Issac Babin Interpretating Date/Time 05/28/2018 08:06:20
--- NOTE | 2018-05-28 08:25 | P.PNIM ---
Subjective Interval history: f/u seizures and likely pneumonia History difficult to obtain due to patient's mental status but does not appear to have a headache. Still lethargic but easily arousable with verbal stimulation. When asked about pain, she was silent. Per RN, patient went to the bathroom this morning, moved her bowels, was able to verbalized her name and birthday. No overnight events, no episode of seizures, no note of coughing , desaturation, focal weakness, fever or chills. Physical Exam Vital signs: Vital Signs 05/27/18 22:23 05/27/18 23:31 05/27/18 23:32 Temperature Pulse Rate 79 81 Respiratory Rate 15 Blood Pressure 143/77 H Pulse Oximetry 95 94 L 05/28/18 01:35 05/28/18 01:37 05/28/18 02:09 Temperature Pulse Rate 69 Respiratory Rate 15 Blood Pressure 126/61 Pulse Oximetry 98 97 97 05/28/18 03:00 05/28/18 03:10 Temperature 97.7 F Pulse Rate 67 69 Respiratory Rate 20 Blood Pressure 125/63 Pulse Oximetry 94 L Intake & Output 05/27/18 05/28/18 05/28/18 18:59 06:59 18:59 Intake Total 1200 / 1200 Output Total 700 / 700 Balance 500 / 500 Weight 73 kg Intake: IV 1200 / 1200 Unasyn Inj 3 GM In NS Inj 100 100 / 100 ML @ 200 mls/hr IV.SIG Q6H [facility] Rx#:[id number] NS Inj 1,000 ML @ Wide Open IV. 1000 / 1000 SIG BOLUS ONE Rx#:[id number] Rocephin Inj 1,000 MG In NS Inj 100 / 100 100 ML @ 200 mls/hr IV.SIG ONCE ONE Rx#:[id number] Output: Urine 700 / 700 Other: # Bowel Movements 1 Narrative: GENERAL: Patient sleeping, arousable to verbal and tactile stimulation. Appears comfortable. SKIN: Warm and dry. NECK: Trachea midline. No JVD. Supple neck. CARDIOVASCULAR: Regular rate and rhythm. No murmurs appreciated. RESPIRATORY: No accessory muscle use. Clear to auscultation. Breath sounds equal bilaterally, poor effort. No wheezing, crackles or rhonchi. GASTROINTESTINAL: Abdomen soft, non-tender, nondistended. MUSCULOSKELETAL: Extremities without clubbing, cyanosis, or edema. No obvious deformities. NEUROLOGICAL: Sleeping, easily arousable with tactile and verbal, opens eyes to command. Per RN oriented to self and knows her birthday this morning at 7 am. No obvious cranial nerve deficits, pupils equal and reactive around 3 mm. Exam limited because of patient's mental status. 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 Differential Comment Auto diff final PT 10.3 INR 1.0 APTT 26.8 Sodium 136 Potassium 4.0 Chloride 100 Carbon Dioxide 27.2 Anion Gap 9 BUN 14 Creatinine 1.07 H Estimated GFR 53 L Random Glucose 107 H Lactic Acid Calcium 9.0 Magnesium 2.3 Total Bilirubin 0.9 AST 38 H ALT 36 Alkaline Phosphatase 131 H Total Creatine Kinase 546 H CK-MB (CK-2) 4.8 H CK-MB (CK-2) % 0.9 Troponin I Less than 0.02 L Total Protein 7.6 Albumin 3.9 Lipase 150 05/28/18 05/28/18 00:00 04:59 WBC RBC Hgb Hct MCV MCH MCHC RDW Plt Count MPV Neut % (Auto) Lymph % (Auto) [place] % (Auto) Eos % (Auto) Baso % (Auto) Neut # (Auto) Lymph # (Auto) [place] # (Auto) Eos # (Auto) Baso # (Auto) WBC Differential Differential Comment PT INR APTT Sodium Potassium Chloride Carbon Dioxide Anion Gap BUN Creatinine Estimated GFR Random Glucose Lactic Acid 1.5 Calcium Magnesium Total Bilirubin AST ALT Alkaline Phosphatase Total Creatine Kinase 658 H CK-MB (CK-2) 10.4 H CK-MB (CK-2) % 1.6 Troponin I 0.05 Total Protein Albumin Lipase - Imaging Impressions Chest X-Ray 05/27/18 22:34 CONCLUSION: Middle lobe infiltrate Head CT 05/28/18 00:00 CONCLUSION: Negative CT Head non contrast. Assessment and Plan - Plan This is a 57/F with h/o Alzheimer's dementia diagnosed 2 years ago admitted after an episode of tonic-clonic seizures New-onset generalized tonic-clonic seizures - CT head reviewed, unremarkable, CK elevated, increased insignificantly, will recheck. Consulted and discussed with Neurology Dr. Chan, agree with MRI and EEG, will f/u results. Keppra IV for now, will need to be on AEDs long-term. Likely secondary Alzheimer's dementia, unlikely due to ALL ROUND LOGGER infection, no note of fever, stiff neck, fever or leukocytosis. Continue Neuro checks, seizure precautions, ativan as needed. Donepezil on hold. Continue IVF for now. Inverted T wave in V1 - Troponin negative x2. Rule-out aspiration pneumonia vs aspiration pnemonitis. -Suspected right middle lobe pneumonia on CXR. Continue Unasyn, recheck CXR tomorrow and WBC. Likely from aspiration. Oxygen support as needed, duonebsk prn. Received azithromycin, flagyl and CTX in the ED. Recheck CXR and WBC tomorrow. Stop in no clear evidence of pneumonia. History of early onset Alzheimer's dementia On donepezil at home. Will hold this medication until patient seen by neurology. Appreciate assistance. Diet: NPO for now while lethargic, Speech evaluation when awake, D5NS for now. CODE STATUS. This will need to be discussed with family on subsequent encounter. Defaulted to full code. Discussed with Dr. Chan, nursing, son and .
[2018-05-28] MEDS: Sodium Chloride 0.9% 2 ML Flush BID IV.FLUSH SCH ×2 (08:58→20:40)
[2018-05-28] MEDS ORDERED: levETIRAcetam 500 MG Tablet PO SCH (09:00)
--- NOTE | 2018-05-28 10:27 | MB ---
cc: John Chan MD, PhD DATE: 05/28/2018 REASON FOR CONSULTATION: New-onset seizure. HISTORY OF PRESENT ILLNESS: Mrs. Layton is a 57-year-old female, well known to me from previous evaluation for progressive dementia. The patient has been diagnosed with an early onset Alzheimer dementia with previous testing including normal MRI brain, normal lumbar puncture. She was also evaluated at the [facility] for a second opinion. The patient has not had any seizures before. However, yesterday evening she was watching television. Her heard, according to the ER note, a loud sound and walked in the room and found the patient to be in a seizure with frothing at the mouth. Generalized tonic-clonic activity was noted consistent with a generalized tonic-clonic seizure. According to the ER staff, EVAC was called and the patient was identified in a postictal state, very lethargic, and presented to the emergency room. I discussed her case with Dr. Toma Brown yesterday evening. A CT scan of the brain was unremarkable. She was afebrile. There was no suggestion of infection. I recommended starting the patient on Keppra 500 mg b.i.d. The patient has been somnolent, but has not had any recurrent seizure activity. PAST MEDICAL HISTORY: Remarkable for early onset Alzheimer disease diagnosed 2 years ago, history of tubal ligation. MEDICATIONS: The patient was recently started on CBD oil, but no new medications started. CURRENT MEDICATIONS IN THE HOSPITAL: 1. Ampicillin 3 grams every 6 hours. 2. Lactulose. 3. Dulcolax. 4. Keppra 500 mg IV b.i.d. 5. Ativan p.r.n. 6. Senokot. NEUROLOGICAL EXAMINATION: VITAL SIGNS: Her blood pressure is 125/63, pulse is 67, respiratory rate is 20, temperature 97.7 degrees. HIGHER CORTICAL FUNCTION: She is very lethargic, but arousable. She is disoriented to place. She can follow simple commands. Further cognitive testing is not able to be conducted at this time due to lethargy. CRANIAL NERVES: The pupils are equal and reactive. The extraocular movements intact. NECK: Supple. No sign of meningismus. There is no facial asymmetry. MOTOR EXAM: She has generalized weakness. There is no gross focal deficit. Tone is normal. DIAGNOSTIC DATA: CT of the brain is within normal limits. EKG is sinus rhythm. LABORATORY DATA: The sodium is 136, potassium is 4.0, chloride 100, CO2 of 27.2. The BUN is 14, creatinine 1.7, GFR 53, glucose 107, calcium is 9, magnesium 2.3, AST 38, ALT is 36, alkaline phosphatase 131. CPK of 546. CPK-MB 4.8%. Troponin less than 0.02. Lipase 150, albumin 3.9. White count is 7600, hemoglobin 13.6, hematocrit 39.9%, platelet count 245,000. PT 10.3, INR of 1, APTT 26.8. IMPRESSION: 1. New-onset generalized tonic-clonic seizure. 2. Early onset dementia, most likely Alzheimer-type dementia based on previous evaluation. The etiology of the seizure may be secondary to the patient's underlying dementia. However, I would recommend further evaluation with an MRI of the brain with and without contrast to rule out any other etiologies such as structural lesion. There is no sign of infectious cause at the present time with no nuchal rigidity, no fevers. The white count is normal. I do not think a lumbar puncture is indicated at the present time with no indication for infectious etiology. We will proceed as well with an EEG. We will continue Keppra 500 mg IV every 12 hours with close neurological monitoring and seizure precautions as well. Thank you for asking me to see this nice patient in consultation. ADDENDUM: Since my initial dictation, I had the opportunity to discuss the case with her , Mr. Layton. He states that she was in her usual state of health over the weekend, was very active. There was no sign of headache. No fevers. Yesterday during the day in the afternoon, her son noted that she had an episode where she was staring blankly ,was not responsive when he called her name. She did not have any automatisms such as lip smacking or fumbling of the hands. After a short period of time, she snapped out of this and was responsive. Her states that later yesterday evening, she was watching TV. He went out of the room briefly. He heard some thrashing about. He went to tend to her. He found her on the floor unresponsive with generalized stiffening, no jerking activity, but she was very stiff throughout. Her eyes were closed. This lasted about a minute, after which she was still unresponsive, was demonstrating labored breathing. There is no bladder incontinence, no tongue biting. He called the paramedics and she was brought to the ER. She had no other seizure activity. Her only medications at home were the Aricept, which she has been on for quite some time, as well as Ginkgo biloba. She recently started CBD oil 2 weeks ago. I discussed the case with her . I feel this is a generalized seizure. I think the most likely etiology is her underlying dementia. There are no signs to suggest an infectious etiology, therefore, I would not recommend putting through a lumbar puncture at this time. I would like to evaluate her further with an MRI of the brain to rule out any other etiology. Also, continue the Keppra. Her asked me if the CBD oil could be contributory. I do not think so. I am not aware of any reports of seizures related to this. Certainly, I do not feel the Aricept or the ginkoba were contributory either. John Chan MD, PhD ADRI/tayla , 08:37 AM , 08:47 AM
[2018-05-28] MEDS: Dextrose 5%/NaCl 0.9% Inj 1,000 ML IV.CONT SCH (11:30)
[2018-05-28 12:12] LABS: Amphetamine Screen,Urine Neg (Neg); Barbiturate Screen,Urine Neg (Neg); Cannabinoid Screen,Urine Pos (Neg); Cocaine Screen,Urine Neg (Neg)
[2018-05-28 12:26] LABS: Opiate Screen,Urine Neg (Neg)
--- NOTE | 2018-05-28 14:17 | MR ---
EXAM DATE: 05/28/2018 11:14 AM EST AGE/SEX: 57 years / Female INDICATIONS: Seizures. CLINICAL DATA: This is the patient's subsequent encounter. Patient reports that signs and symptoms h ave been present for 2 days and indicates a pain score of 0/10. MEDICAL/SURGICAL HISTORY: Alzheimer's disease. Tubal ligation. COMPARISON: [facility], MR BRAIN W AND W/O CONTRAST, 08/03/2016. . TECHNIQUE: Multiplanar, multisequence examination of the brain was performed without contrast. FINDINGS: MRI of the brain is performed in sagittal, axial and coronal planes. The craniocervical junction and midline structures are unremarkable. Diffusion weighted images demonstrate no abnormality. No acute c ortical infarction, acute hemorrhage, mass effect or midline shift is seen.There is periventricular h yperintensity circumferentially surrounding the variants ventricles similar to the prior study. There is periventricular hyperintensity on the T2 weighted images consistent with small vessel vascular di sease slightly more than expected in a patient of this age. Mild diffuse atrophy is present though th is is not more prominent in the parietal or temporal lobes where there is prominent hypometabolism on the PET scan.. Posterior fossa structures are unremarkable. CONCLUSION: No evidence of acute intracranial pathology. Chronic ischemic changes as above. There has been no si gnificant change when compared to the prior exam. Electronically signed by: Eduin Cabrera MD 05/28/2018 2:15 PM EST
--- NOTE | 2018-05-28 15:05 | MG ---
cc: John Chan MD, PhD TEST NUMBER: [id number] TECHNIQUE: This is a 17-channel EEG recording. DESCRIPTION: The patient is described as being drowsy, and asleep during the recording. The background electroencephalographic activity reveals slowing in a diffuse fashion in both theta and delta frequencies with a frequency of about 4-6 Hz. Sleep spindles are identified occasionally in the recording. There are no lateralizing features identified. There are no epileptiform features seen. Rare vertex sharp waves are identified, consistent with sleep activity. Hyperventilation was not done as the patient was asleep. Photic stimulation results in no significant posterior driving response. INTERPRETATION: There is generalized slowing in the EEG tracing with sleep spindles consistent with normal sleep activity. No ongoing seizure activity is identified. John Chan MD, PhD ADRI/calin , 02:47 PM , 02:53 PM
[2018-05-29 00:50] VITALS: RESP 16
[2018-05-29] MEDS: Ampicillin/Sulbactam Inj 3 GM in Sodium Chloride 0.9% Inj 100 ML IV.SIG SCH ×3 (01:58→13:18)
--- NOTE | 2018-05-29 08:06 | XR ---
EXAM DATE: 05/29/2018 8:00 AM EST AGE/SEX: 57 years / Female INDICATIONS: Seizure w/ aspiration. CLINICAL DATA: This is the patient's initial encounter. Patient reports that signs and symptoms have been present for 2 days and indicates a pain score of 0/10. MEDICAL/SURGICAL HISTORY: Seizures. Alzheimer's disease. Tubal ligation. COMPARISON: [facility] [place]ST 1V SINGLE AP, 05/27/2018. . FINDINGS: Improved aeration of the medial right lower lung zone. No significant new focal pleural or parenchyma l opacities. Cardiomediastinal contours are within normal limits. Remainder of the exam is unchanged. CONCLUSION: 1. Improved right middle lobe airspace disease. Electronically signed by: Buddy Fang MD 05/29/2018 8:05 AM EST
[2018-05-29 08:24] LABS: Baso # (Auto) 0.1 th/mm3 (0.0-0.2); Baso % (Auto) 1.2 % (0.0-2.0); Eos # (Auto) 0.3 th/mm3 (0.0-0.4); Eos % (Auto) 5.1 % (0.0-4.0); Hematocrit 40.1 % (35.0-46.0); Hemoglobin 13.7 gm/dL (11.6-15.3); Lymph # (Auto) 1.7 th/mm3 (1.0-4.8); Lymph % (Auto) 33.2 % (9.0-44.0); Mean Corpuscular HGB Conc 34.1 % (32.0-36.0); Mean Corpuscular Volume 90.8 fL (80.0-100.0); Mean Platelet Volume 8.8 fL (7.0-11.0); Mono # (Auto) 0.4 th/mm3 (0.0-0.9); Mono % (Auto) 8.1 % (0.0-8.0); Neut # (Auto) 2.7 th/mm3 (1.8-7.7); Neut % (Auto) 52.4 % (16.0-70.0); Platelet Count 216 th/mm3 (150-450); Red Blood Count 4.42 mil/mm3 (4.00-5.30); Red Cell Distribution Width 13.2 % (11.6-17.2); White Blood Count 5.1 th/mm3 (4.0-11.0)
[2018-05-29] MEDS: Sodium Chloride 0.9% 2 ML Flush BID IV.FLUSH SCH ×2 (08:34→21:55)
--- NOTE | 2018-05-29 08:34 | P.PNIM ---
Subjective Interval history: f/u seizures NO seizure activity overnight per RN. Pulled her IV this am, went to the bathroom with good mobility per RN, still confused and disoriented, mumbles incoherently at times. Patient has no complaints, denies headache, stiff neck/ neck pain, SOB, cough or fever. Cleared by ST for regular diet. Physical Exam Vital signs: Vital Signs 05/28/18 11:00 05/28/18 15:42 05/28/18 17:00 Temperature 97.9 F Pulse Rate 61 55 L 64 Respiratory Rate 16 16 Blood Pressure 129/62 128/72 Pulse Oximetry 92 L 05/28/18 18:00 05/28/18 19:00 05/28/18 19:45 Temperature 99.0 F Pulse Rate 66 64 69 Respiratory Rate 18 Blood Pressure 130/64 Pulse Oximetry 96 05/28/18 20:00 05/28/18 21:00 05/28/18 21:31 Temperature Pulse Rate 74 60 Respiratory Rate 14 Blood Pressure Pulse Oximetry 96 97 05/28/18 22:00 05/28/18 23:00 05/29/18 00:00 Temperature 97.7 F Pulse Rate 60 57 L 52 L Respiratory Rate 16 Blood Pressure 151/73 H Pulse Oximetry 94 L 05/29/18 01:00 05/29/18 02:00 05/29/18 03:00 Temperature Pulse Rate 51 L 52 L 58 L Respiratory Rate 16 Blood Pressure 131/68 Pulse Oximetry 94 L 05/29/18 04:00 05/29/18 05:00 05/29/18 05:57 Temperature Pulse Rate 57 L 53 L 54 L Respiratory Rate Blood Pressure Pulse Oximetry Intake & Output 05/28/18 05/29/18 05/29/18 18:59 06:59 18:59 Intake Total 1350 / 1350 375 / 375 Output Total 1650 / 1650 Balance -300 / -300 375 / 375 Weight 74 kg Intake: IV 1350 / 1350 375 / 375 NS Inj 1,000 ML @ 75 mls/hr IV. 590 / 590 CONT .[id number] [facility] Rx#:[id number] Unasyn Inj 3 GM In NS Inj 100 200 / 200 170 / 170 ML @ 200 mls/hr IV.SIG Q6H [facility] Rx#:[id number] Keppra Inj 500 MG In NS Inj 100 210 / 210 205 / 205 ML @ 400 mls/hr IV.SIG Q8H [facility] Rx#:[id number] Oral 0 / 0 Output: Urine 1650 / 1650 Other: # Voids 1 1 Date of Last Bowel Movement 05/28/18 Narrative: GENERAL: Patient is awake. Just passed her swallow evaluation. Appears comfortable. SKIN: Warm and dry. NECK: Trachea midline. No JVD. Supple neck. CARDIOVASCULAR: Regular rate and rhythm. No murmurs appreciated. RESPIRATORY: No accessory muscle use. Clear to auscultation. Breath sounds equal bilaterally, poor effort. No wheezing, crackles or rhonchi. GASTROINTESTINAL: Abdomen soft, non-tender, nondistended. MUSCULOSKELETAL: Extremities without clubbing, cyanosis, or edema. No obvious deformities. NEUROLOGICAL: Awake, alert, not oriented to time and place. Seems oriented to self. No obvious cranial nerve deficits, pupils equal and reactive around 3 mm. Moves extremities spontaneously, sometimes answers questions tangentially , not combative. Results - Labs CBC & Chem 7: 05/29/18 07:00 05/29/18 07:00 Laboratory Results - last 24 hr 05/28/18 05/28/18 05/29/18 11:20 13:10 07:00 WBC 5.1 RBC 4.42 Hgb 13.7 Hct 40.1 MCV 90.8 MCH 31.0 MCHC 34.1 RDW 13.2 Plt Count 216 MPV 8.8 Neut % (Auto) 52.4 Lymph % (Auto) 33.2 [place] % (Auto) 8.1 H Eos % (Auto) 5.1 H Baso % (Auto) 1.2 Neut # (Auto) 2.7 Lymph # (Auto) 1.7 [place] # (Auto) 0.4 Eos # (Auto) 0.3 Baso # (Auto) 0.1 WBC Differential . Differential Comment Auto diff final Troponin I Less than 0.02 L Urine Opiates Screen Neg Ur Barbiturates Screen Neg Ur Amphetamines Screen Neg U Benzodiazepines Scrn Neg Urine Cocaine Screen Neg U Cannabinoids Screen Pos H - Imaging Impressions Head MRI 05/28/18 00:00 CONCLUSION: No evidence of acute intracranial pathology. Chronic ischemic changes as above. There has been no significant change when compared to the prior exam. Chest X-Ray 05/29/18 07:30 CONCLUSION: 1. Improved right middle lobe airspace disease. Assessment and Plan - Plan This is a 57/F with h/o Alzheimer's dementia diagnosed 2 years ago admitted after an episode of tonic-clonic seizures New-onset generalized tonic-clonic seizures - CT head reviewed, unremarkable, CK elevated, increased insignificantly, repeat pending. Neurology Dr. Chan on board, discussed with Dr. Chan and Dr. Cabrera, no significant changes in her MRI. EEG showed normal sleeping activity, no seizure activity noted. On Keppra q8, will switch to PO if ok with neurology, per Neurology, will need to be on AEDs long-term. Likely secondary Alzheimer's dementia, unlikely due to [employer] infection, no note of fever, stiff neck, fever or leukocytosis. Continue Neuro checks, seizure precautions, ativan as needed. Donepezil on hold, restart on discharge if ok with neurology. Continue IVF for now. Mild LFT and CK elevation secondary to seizures, on IVF: D5NS, awaiting repeat CK and LFTs/CMP, d/c D5NS if unremarkable. Inverted T wave in V1 - Troponin negative x2. No note of chest pain. Rule-out aspiration pneumonia vs aspiration pneumonitis. -Suspected right middle lobe pneumonia on CXR. Repeat CXR showed significant improvement, still w/o leukocytosis today. Likely aspiration pneumonitis. will d/c unasyn since clinically no signs of active infection like cough, SOB, desaturation, leukocytosis or fever. Oxygen support as needed, duonebs prn. Received azithromycin, flagyl and CTX in the ED. History of early onset Alzheimer's dementia On donepezil at home. Restart after cleared by neurology. Appreciate assistance. Diet: Discussed with ST, start regular diet. D/C D5NS, resume diet. CODE STATUS. This will need to be discussed with family on subsequent encounter. Defaulted to full code. Discussed with Dr. Chan, nursing, sons and .
[2018-05-29 08:44] LABS: Alanine Aminotransferase 30 U/L (10-53); Albumin 3.3 g/dL (3.4-5.0); Alkaline Phosphatase 124 U/L (45-117); Anion Gap 9 meq/L (5-15); Aspartate Aminotransferase 33 U/L (15-37); Blood Urea Nitrogen 7 mg/dL (7-18); Calcium 8.8 mg/dL (8.5-10.1); Carbon Dioxide 24.2 meq/L (21.0-32.0); Chloride 110 meq/L (98-107); Creatine Kinase 603 U/L (26-192); Glomerular Filtration Rate 67 mL/min (>89); Glucose,Random 91 mg/dL (74-106); Potassium 3.7 meq/L (3.5-5.1); Sodium 143 meq/L (136-145); Total Protein 6.7 g/dL (6.4-8.2)
--- NOTE | 2018-05-29 09:11 | P.DCO ---
- Home Health Nursing Order: Signs/symptoms of disease process, Medication education-adverse effect, Nursing assessment with vital signs - Home Health Aide Order: To assist in: Bathing and personal care - Case Management Consult Yes - Certification I have seen patient Aliya Layton on 05/29/18. My clinical findings support the need for the requested home health care services because: Limited mobility due to disease progression, Deconditioned with increased weakness, Limited ability to care for self, Impaired cognition/judgement I certify that my clinical findings support that this patient is homebound because: Impaired cognitive ability/safety
[2018-05-29] MEDS: Dextrose 5%/NaCl 0.9% Inj 1,000 ML IV.CONT SCH (09:22)
[2018-05-29 09:35] LABS: CKMB Percent 0.9 % (0.0-4.0); Creatine Kinase MB 5.3 ng/mL (0.5-3.6)
--- NOTE | 2018-05-29 12:14 | P.PNNEU ---
Subjective Subjective Comments: more alert today. Has had no recurrent sz. Had some aggitation last PM passed swallow evaluation and keppra changed to po Active Medications: Active Medications Al Hydroxide/Mg Hydroxide (Milk Of Magnesia Liq) 30 ml PO Q12H PRN PRN Reason: Mild Constipation Albuterol (Duoneb Neb (Prn)) 1 ampul NEB Q4HR NEB PRN PRN Reason: SOB, wheezing Bisacodyl (Dulcolax Supp) 10 mg RECTAL DAILY PRN PRN Reason: SEVERE CONSITIPATION Donepezil HCl (Aricept) 5 mg PO DAILY [facility] Last Admin: 05/29/18 10:39 Dose: 5 mg Ampicillin Sodium/Sulbactam (Sodium 3 gm/ Sodium Chloride) 100 mls @ 200 mls/ hr IV.SIG Q6H [facility] Stop: 05/29/18 16:00 Last Infusion: 05/29/18 08:33 Dose: Infused Lactulose (Lactulose Liq) 30 ml PO DAILY PRN PRN Reason: SEVERE CONSITIPATION Levetiracetam (Keppra) 1,000 mg PO HS [facility] Levetiracetam (Keppra) 500 mg PO DAILY [facility] Lorazepam (Ativan Inj) 0.5 mg IV.PUSH Q2H PRN PRN Reason: AGITATION Last Admin: 05/29/18 00:40 Dose: 0.5 mg Sennosides (Senokot) 17.2 mg PO Q12H PRN PRN Reason: Moderate Constipation Sodium Chloride (Ns Flush) 2 ml IV.FLUSH PRN PRN PRN Reason: FLUSH AFTER USING IV ACCESS Last Admin: 05/29/18 00:41 Dose: 2 ml Sodium Chloride (Ns Flush) 2 ml IV.FLUSH BID [facility] Last Admin: 05/29/18 08:34 Dose: Not Given Allergies/Adverse Reactions: Allergies Allergy/AdvReac Type Severity Reaction Status Date / Time No Known Allergies Allergy Uncoded 05/14/12 10:27 Physical Exam Vital signs: Vital Signs 05/28/18 15:42 05/28/18 17:00 05/28/18 18:00 Temperature Pulse Rate 55 L 64 66 Respiratory Rate 16 Blood Pressure 128/72 Pulse Oximetry 05/28/18 19:00 05/28/18 19:45 05/28/18 20:00 Temperature 99.0 F Pulse Rate 64 69 74 Respiratory Rate 18 14 Blood Pressure 130/64 Pulse Oximetry 96 96 05/28/18 21:00 05/28/18 21:31 05/28/18 22:00 Temperature Pulse Rate 60 60 Respiratory Rate Blood Pressure Pulse Oximetry 97 05/28/18 23:00 05/29/18 00:00 05/29/18 01:00 Temperature 97.7 F Pulse Rate 57 L 52 L 51 L Respiratory Rate 16 Blood Pressure 151/73 H Pulse Oximetry 94 L 05/29/18 02:00 05/29/18 03:00 05/29/18 04:00 Temperature Pulse Rate 52 L 58 L 57 L Respiratory Rate 16 Blood Pressure 131/68 Pulse Oximetry 94 L 05/29/18 05:00 05/29/18 05:57 05/29/18 07:00 Temperature 98.5 F Pulse Rate 53 L 54 L 66 Respiratory Rate 16 Blood Pressure 131/80 Pulse Oximetry 94 L 05/29/18 08:00 05/29/18 08:35 05/29/18 11:00 Temperature 98.7 F Pulse Rate 68 Respiratory Rate 16 Blood Pressure 145/84 H Pulse Oximetry 94 L 95 93 L Intake & Output 05/28/18 05/29/18 05/29/18 18:59 06:59 18:59 Intake Total 1350 / 1350 375 / 375 1100 / 1100 Output Total 1650 / 1650 Balance -300 / -300 375 / 375 1100 / 1100 Weight 74 kg Intake: IV 1350 / 1350 375 / 375 1100 / 1100 D5W/Normal Saline Inj 1,000 ML 1000 / 1000 @ 42 mls/hr IV.CONT .[id number] [facility] Rx#:[id number] NS Inj 1,000 ML @ 75 mls/hr IV. 590 / 590 CONT .[id number] [facility] Rx#:[id number] Unasyn Inj 3 GM In NS Inj 100 200 / 200 170 / 170 100 / 100 ML @ 200 mls/hr IV.SIG Q6H [facility] Rx#:[id number] Keppra Inj 500 MG In NS Inj 100 210 / 210 205 / 205 ML @ 400 mls/hr IV.SIG Q8H [facility] Rx#:[id number] Oral 0 / 0 Output: Urine 1650 / 1650 Other: # Voids 1 1 Date of Last Bowel Movement 05/28/18 - Routine Neurological Exam alert, disoriented to place and date. Has trouble with comprehension CN PERRL. EOM-intact MOTOR--no focal weakness, normal tone Objective Laboratory Results - last 24 hr 05/28/18 05/28/18 05/29/18 11:20 13:10 07:00 WBC 5.1 RBC 4.42 Hgb 13.7 Hct 40.1 MCV 90.8 MCH 31.0 MCHC 34.1 RDW 13.2 Plt Count 216 MPV 8.8 Neut % (Auto) 52.4 Lymph % (Auto) 33.2 [place] % (Auto) 8.1 H Eos % (Auto) 5.1 H Baso % (Auto) 1.2 Neut # (Auto) 2.7 Lymph # (Auto) 1.7 [place] # (Auto) 0.4 Eos # (Auto) 0.3 Baso # (Auto) 0.1 WBC Differential . Differential Comment Auto diff final Sodium Potassium Chloride Carbon Dioxide Anion Gap BUN Creatinine Estimated GFR Random Glucose Calcium Total Bilirubin AST ALT Alkaline Phosphatase Total Creatine Kinase CK-MB (CK-2) CK-MB (CK-2) % Troponin I Less than 0.02 L Total Protein Albumin Urine Opiates Screen Neg Ur Barbiturates Screen Neg Ur Amphetamines Screen Neg U Benzodiazepines Scrn Neg Urine Cocaine Screen Neg U Cannabinoids Screen Pos H 05/29/18 07:00 WBC RBC Hgb Hct MCV MCH MCHC RDW Plt Count MPV Neut % (Auto) Lymph % (Auto) [place] % (Auto) Eos % (Auto) Baso % (Auto) Neut # (Auto) Lymph # (Auto) [place] # (Auto) Eos # (Auto) Baso # (Auto) WBC Differential Differential Comment Sodium 143 Potassium 3.7 Chloride 110 H D Carbon Dioxide 24.2 Anion Gap 9 BUN 7 Creatinine 0.88 Estimated GFR 67 L Random Glucose 91 Calcium 8.8 Total Bilirubin 1.5 H AST 33 ALT 30 Alkaline Phosphatase 124 H Total Creatine Kinase 603 H CK-MB (CK-2) 5.3 H CK-MB (CK-2) % 0.9 Troponin I Total Protein 6.7 D Albumin 3.3 L D Urine Opiates Screen Ur Barbiturates Screen Ur Amphetamines Screen U Benzodiazepines Scrn Urine Cocaine Screen U Cannabinoids Screen Microbiology 05/28/18 00:05 Aerobic Blood Culture - Preliminary Blood - Peripheral No growth in 1 day Anaerobic Blood Culture - Preliminary No growth in 1 day 05/28/18 00:00 Aerobic Blood Culture - Preliminary Blood - Peripheral No growth in 1 day Anaerobic Blood Culture - Preliminary No growth in 1 day Review/Management - Diagnosis (1) New onset seizure Code(s): R56.9 - Unspecified convulsions Status: Acute Current Visit: Yes - Review/Management Plan: continue keppra 500 mg in am po and 1000 mg in pm po. I recommend continued monitoring in hospital today and tonight. If stable tomorrow, consider discharge resume aricept
[2018-05-29 20:24] VITALS: PULSE 68
[2018-05-29] MEDS ORDERED: levETIRAcetam 500 MG Tablet PO SCH (21:00)
--- NOTE | 2018-05-30 08:14 | P.PNIM ---
Subjective Interval history: f/u seizures No overnight events, tolerating diet, no seizure episode, coughing, shortness of breath or desaturation. Denies any chest pain. She received ativan yesterday around 3 pm Physical Exam Vital signs: Vital Signs 05/29/18 08:35 05/29/18 11:00 05/29/18 15:00 Temperature 98.7 F 97.9 F Pulse Rate 68 71 Respiratory Rate 16 16 Blood Pressure 145/84 H 166/82 H Pulse Oximetry 95 93 L 98 05/29/18 19:00 05/29/18 20:00 05/29/18 23:00 Temperature 98.7 F 98.1 F Pulse Rate 68 68 Respiratory Rate 16 16 Blood Pressure 154/86 H 147/67 H Pulse Oximetry 98 95 98 Intake & Output 05/29/18 05/30/18 05/30/18 18:59 06:59 18:59 Intake Total 1920 / 1920 720 / 720 Output Total 2049 / 2049 650 / 650 Balance -130 / -130 70 / 70 Weight 74 kg Intake: IV 1200 / 1200 D5W/Normal Saline Inj 1,000 ML 1000 / 1000 @ 42 mls/hr IV.CONT .[id number] [facility] Rx#:[id number] Unasyn Inj 3 GM In NS Inj 100 200 / 200 ML @ 200 mls/hr IV.SIG Q6H [facility] Rx#:[id number] Oral 720 / 720 720 / 720 Output: Urine 2049 / 2049 650 / 650 Other: # Voids 2 Narrative: GENERAL: Patient is awake. Appears comfortable. Calm, not agitated. SKIN: Warm and dry. NECK: Trachea midline. No JVD. Supple neck. CARDIOVASCULAR: Regular rate and rhythm. No murmurs appreciated. RESPIRATORY: No accessory muscle use. Clear to auscultation. Breath sounds equal bilaterally. No wheezing, crackles or rhonchi. GASTROINTESTINAL: Abdomen soft, non-tender, nondistended. MUSCULOSKELETAL: Extremities without clubbing, cyanosis, or edema. No obvious deformities. NEUROLOGICAL: Awake, alert, not oriented to self and person, but not to time and place. No obvious cranial nerve deficits, pupils equal and reactive around 3 mm. Moves extremities spontaneously, sometimes answers questions tangentially, not combative. Results - Labs CBC & Chem 7: 05/29/18 07:00 05/29/18 07:00 Laboratory Results - last 24 hr 05/29/18 05/29/18 07:00 07:00 WBC 5.1 RBC 4.42 Hgb 13.7 Hct 40.1 MCV 90.8 MCH 31.0 MCHC 34.1 RDW 13.2 Plt Count 216 MPV 8.8 Neut % (Auto) 52.4 Lymph % (Auto) 33.2 [place] % (Auto) 8.1 H Eos % (Auto) 5.1 H Baso % (Auto) 1.2 Neut # (Auto) 2.7 Lymph # (Auto) 1.7 [place] # (Auto) 0.4 Eos # (Auto) 0.3 Baso # (Auto) 0.1 WBC Differential . Differential Comment Auto diff final Sodium 143 Potassium 3.7 Chloride 110 H D Carbon Dioxide 24.2 Anion Gap 9 BUN 7 Creatinine 0.88 Estimated GFR 67 L Random Glucose 91 Calcium 8.8 Total Bilirubin 1.5 H AST 33 ALT 30 Alkaline Phosphatase 124 H Total Creatine Kinase 603 H CK-MB (CK-2) 5.3 H CK-MB (CK-2) % 0.9 Total Protein 6.7 D Albumin 3.3 L D Microbiology 05/28/18 00:05 Blood - Peripheral Aerobic Blood Culture - Preliminary No growth in 1 day 05/28/18 00:05 Blood - Peripheral Anaerobic Blood Culture - Preliminary No growth in 1 day 05/28/18 00:00 Blood - Peripheral Aerobic Blood Culture - Preliminary No growth in 1 day 05/28/18 00:00 Blood - Peripheral Anaerobic Blood Culture - Preliminary No growth in 1 day Assessment and Plan - Plan This is a 57/F with h/o Alzheimer's dementia diagnosed 2 years ago admitted after an episode of tonic-clonic seizures New-onset generalized tonic-clonic seizures - CT head reviewed, unremarkable, CK elevated, increased insignificantly, repeat pending. Neurology Dr. Chan on board, discussed with Dr. Chan and Dr. Cabrera, no significant changes in her MRI. EEG showed normal sleeping activity, no seizure activity noted. On Keppra PO and tolearting, need to be on AEDs long-term. 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 Since still having episodes of agitation, will give PO ativan as needed. Donepezil restarted. Mild LFT and CK elevation secondary to seizures resolving. Inverted T wave in V1 - Troponin negative x2. No note of chest pain. Rule-out aspiration pneumonia vs aspiration pneumonitis. -Suspected right middle lobe pneumonia on CXR. Repeat CXR showed significant improvement, still w/o leukocytosis. Likely aspiration pneumonitis.off unasyn since clinically no signs of active infection like cough, SOB, desaturation, leukocytosis or fever. Received azithromycin, flagyl and CTX in the ED. History of early onset Alzheimer's dementia On donepezil at home. Restarted per neurology. Appreciate assistance. Diet: Discussed with ST, tolerating regular diet. CODE STATUS. Defaulted to full code. Discussed with Dr. Chan, nursing, sons and .
--- NOTE | 2018-05-30 08:38 | P.DS ---
Date of admission: 05/28/18 01:24 Primary care physician: Blanca Hernández MD Attending physician on discharge: Nissa Monreal Anticipated date of discharge: 05/30/18 Brief History from admission: 57-year-old female with history of early onset Alzheimer's dementia diagnosed 2 years ago who presents to the emergency department with seizure activity witnessed by her at home prior to arrival. Patient had been watching television, with reporting a loud sound, groaning, with patient having fallen to the floor, with generalized tonic-clonic seizure activity, gurgling, frothing at the mouth. Patient reported to have decreased level of consciousness for 5 minutes, reportedly in postictal state as per golf course assistant. Patient poorly communicative at baseline, however reportedly able to tell ER staff her name and birthdate. She subsequently received Ativan prior to CT scan and is now sleeping soundly. notes no changes in medications recently. Patient has been verbally aggressive with home care, and was started on CBD oil 2 weeks ago which appears to have helped calm her down. Patient was noted to be sleeping during the day on Sunday, apparently found trying to take a handful of ibuprofen on Sunday, however was only administered 3 tablets at that time. No significant changes over the past few days. DS: Diagnosis - Discharge Diagnosis (1) Aspiration pneumonitis Status: Resolved (2) Alzheimer's dementia with behavioral disturbance Status: Chronic (3) New onset seizure Status: Acute DS: Medications - Discharge Medications Prescriptions: levetiracetam [Keppra] 1,000 mg PO HS #30 tab levetiracetam [Keppra] 500 mg PO DAILY #30 tab lorazepam [Ativan] 0.5 mg PO DAILY PRN #20 tab PRN Reason: Agitation DS: Summary Hospital Course: This is a 57/F with h/o Alzheimer's dementia diagnosed recently admitted after an episode of new onset tonic-clonic seizures. After ED admission, CT scan was done which was unremarkable. Dr. Chan from neurology was consulted, MRI of the brain and EEG were done. CK was mildly elevated, recheck showed improvement. Discussed with Dr. Chan and Dr. Cabrera, no significant changes in her MRI. EEG showed normal sleeping activity, no seizure activity noted. Patient was started on Keppra IV which she tolerated well. After a day, Keppra was switched to oral at 500 mg p.o. in the morning and 1000 mg at night per neurology. Aricept was restarted. Her mental status improved, she passed her swallow evaluation, started on regular diet which she tolerated well. Since she was still having episodes of agitation requiring intravenous Ativan, Dr. Chan also recommended to give her a few doses of Ativan 0.5 mg as needed. Recommendation is to hold off on the CBD oil for now since Keppra may have a calming effect. She also had mild LFT elevation which improved other than mild hyperbilirubinemia. It may be prudent to do a recheck in 1-2 weeks upon follow- up with primary care physician. Upon ED admission, chest x-ray also showed beginning right middle lobe infiltrate. Patient was given Flagyl, azithromycin and ceftriaxone in the ED. She was continued on Unasyn for 2 days. However she did not have any other symptoms like cough, leukocytosis, shortness of breath, or desaturation. There were no clinical signs of active infection. Unasyn was stopped. It was thought that she may just have aspiration pneumonitis. Repeat chest x-ray showed improvement of the right middle lobe infiltrate. Her respiratory status remained stable off Unasyn. Preliminary blood culture results are negative. Patient's blood pressure also has been fluctuating but not significantly. This may be secondary to stress or being in the hospital. She does not have any history of hypertension and not on any medications at home. Blood pressure on discharge was in the high 130s over 70. She will follow-up with her primary care physician for further monitoring. She will be going home with home health care. Follow-up: Blood pressure and LFTs including total bilirubin as outpatient. Discussed case with Dr. Marcus Holbrook, patient's new PCP and to follow-up on the above issues. - Time Spent with Patient Total time spent providing and/or coordinating discharge services: Greater than 30 minutes - Quality: AMI Clinical Trial Participant: No Exam Vital signs: Vital Signs 05/29/18 08:35 05/29/18 11:00 05/29/18 15:00 Temperature 98.7 F 97.9 F Pulse Rate 68 71 Respiratory Rate 16 16 Blood Pressure 145/84 H 166/82 H Pulse Oximetry 95 93 L 98 05/29/18 19:00 05/29/18 20:00 05/29/18 23:00 Temperature 98.7 F 98.1 F Pulse Rate 68 68 Respiratory Rate 16 16 Blood Pressure 154/86 H 147/67 H Pulse Oximetry 98 95 98 Intake & Output 05/29/18 05/30/18 05/30/18 18:59 06:59 18:59 Intake Total 1920 / 1920 720 / 720 Output Total 2049 650 / 650 Balance -130 / -130 70 / 70 Weight 74 kg Intake: IV 1200 / 1200 D5W/Normal Saline Inj 1,000 ML 1000 / 1000 @ 42 mls/hr IV.CONT .[id number] [facility] Rx#:[id number] Unasyn Inj 3 GM In NS Inj 100 200 / 200 ML @ 200 mls/hr IV.SIG Q6H [facility] Rx#:[id number] Oral 720 / 720 720 / 720 Output: Urine 2049 650 / 650 Other: # Voids 2 Narrative: GENERAL: Patient is awake. Appears comfortable. Calm, not agitated. SKIN: Warm and dry. NECK: Trachea midline. No JVD. Supple neck. CARDIOVASCULAR: Regular rate and rhythm. No murmurs appreciated. RESPIRATORY: No accessory muscle use. Clear to auscultation. Breath sounds equal bilaterally. No wheezing, crackles or rhonchi. GASTROINTESTINAL: Abdomen soft, non-tender, nondistended. MUSCULOSKELETAL: Extremities without clubbing, cyanosis, or edema. No obvious deformities. NEUROLOGICAL: Awake, alert, not oriented to self and person, but not to time and place. No obvious cranial nerve deficits, pupils equal and reactive around 3 mm. Moves extremities spontaneously, sometimes answers questions tangentially, not combative. Results Procedures completed during hospitalization: None Completed studies during hospitalization: MRI, CT head EEG Pending studies at discharge: Repeat LFTs, TB, DB, IB Labs on day of discharge: Labs from last 24 hours 05/29/18 07:00 Sodium 143 Potassium 3.7 Chloride 110 H D Carbon Dioxide 24.2 Anion Gap 9 BUN 7 Creatinine 0.88 Estimated GFR 67 L Random Glucose 91 Calcium 8.8 Total Bilirubin 1.5 H AST 33 ALT 30 Alkaline Phosphatase 124 H Total Creatine Kinase 603 H CK-MB (CK-2) 5.3 H CK-MB (CK-2) % 0.9 Total Protein 6.7 D Albumin 3.3 L D Preliminary micro results at discharge 05/28/18 00:05 Aerobic Blood Culture - Preliminary Blood - Peripheral No growth in 1 day Anaerobic Blood Culture - Preliminary No growth in 1 day 05/28/18 00:00 Aerobic Blood Culture - Preliminary Blood - Peripheral No growth in 1 day Anaerobic Blood Culture - Preliminary No growth in 1 day - Impressions ITS Impressions Head CT 05/28/18 00:00 CONCLUSION: Negative CT Head non contrast. Head MRI 05/28/18 00:00 CONCLUSION: No evidence of acute intracranial pathology. Chronic ischemic changes as above. There has been no significant change when compared to the prior exam. Chest X-Ray 05/29/18 07:30 CONCLUSION: 1. Improved right middle lobe airspace disease. - Additional Comments F/U BP as outpatient Discharge Plan - Discharge Disposition Patient Disposition: /Home Health Service - Discharge Condition Condition: Good - Discharge Order Discharge Orders: Discharge Order (Routine); Ordered 05/30/18 Ordered By: Nissa Monreal - Discharge Details Anticipated Discharge Date: 05/30/18 - Physicians Team Primary Care Provider: Blanca Hernández Attending Provider: Nissa Monreal Other Providers: Doug Ordaz MD
[2018-05-30] MEDS ORDERED: levETIRAcetam 500 MG Tablet PO SCH (09:00)
[2018-05-30 12:10] VITALS: BP 138/66; TEMP 97.8
[2018-05-30 12:20] VITALS: O2SAT 96
== END 2018-05-30 10:04 | disposition home health service (06) ==
LOC: NEPC 22:15 → INTOOBSV 05-28 01:00 → NEDA 05-28 01:00 → HCVI 05-28 02:06 → HCPC 05-28 16:19
PROVIDERS: ADMIT Hospitalist; ATTEND Hospitalist